=== PATIENT | female | born 1970 | race Caucasian/White ===

== ENCOUNTER 2024-12-03 12:32 | Outpatient (AMB) | payer BC, SELFPAY ==
--- NOTE | 2024-12-03 12:37 | A.OFFVIS_ITS ---
Vital Signs 12/03/24 12:40 Height 5 ft 2 in Weight 180 lb BMI 32.9 Handedness Left Intake Visit Reasons: Left knee pain Intake Note: Concepción is a 54 year old female who presents with complaints of left knee pain. The patient states that most of the pain is along the anterior and lateral aspect of her knee. She did have a cortisone injection given into her left knee several years ago which gave her fairly good relief. She has tried Tylenol and Aleve which gave her mild relief. She denies any locking or giving way. Allergies shellfish derived (shellfish) Allergy (Severe, Verified 12/03/24 12:42) Anaphylaxis Medication List - Last Reconciled 12/03/24 by Zohaib Boyer MD lisinopril 10 mg PO BID norethin-e.estradiol triphasic 0.5/0.75/1 mg- 35 mcg (Nylia (28)) 1 tab PO DAILY Physical Exam Vital Signs: BMI result Body Mass Index 32.9 Const Other: Well-nourished well-developed very friendly female awake alert and oriented x3 in no acute distress Extrem Other: Bilateral lower extremity examination shows good capillary refill, no skin lesions noted, normal sensation light touch Left knee examination shows a minimal effusion, mild crepitus with range of motion, tenderness along her medial and lateral joint lines, positive Zelda's test, no instability Office Procedures AMB Joint Injection/Aspiration Joint Injection/Aspiration Primary Site: left knee Prep: site was prepped using aseptic technique Injected: 40 mg of, DepoMedrol and 1% plain lidocaine Procedure: The patient tolerated the procedure well Coding 99834 - Large joint Procedure code (CPT) selection complete Results Reviewed Results Reviewed: X-rays of the patient's left knee taken previously show mild joint space narrowing, no acute bony abnormalities Assessment & Plan Assessment & Plan (1) Left knee pain: Code(s): M25.562 - Pain in left knee Category: Medical Plan Ms. Linares presents with left knee pain due to early degenerative joint disease as well as possible meniscus tearing. I had a lengthy discussion with the patient regarding the treatment options. She wishes to hold off on surgery if at all possible. I agree with this plan. The risks and benefits of a left knee cortisone injection were discussed at length with the patient. The patient wished to proceed. She tolerated the injection well. She will continue with her activity modifications. She will contact me prior to her follow-up appointment in 3 months should any questions or concerns arise. Feel free to call me at any time should questions regarding her orthopedic management arise. I spent 21 minutes in reviewing the patient's records and imaging studies, seeing the patient and documenting in the medical record. Orders: Orders 2 XR knee LT 3V Today M25.562 - Pain in left knee AMB Joint Injection/Aspiration Today M25.562 - Pain in left knee Coding Level of Care Code New Pt Level 3 (50125) Complex EM visit Add On G2211 Diagnoses Left knee pain M25.562 CPT Codes Coding - 83666 Large joint: 68885 - Large joint ([id number])
[2024-12-03 12:40] VITALS: BMI 32.9
== END 2024-12-03 12:58 | disposition home or self-care (01) ==
LOC: HO.HOS 12:33
PROVIDERS: PCP Family Medicine; Visit Provider Orthopaedic Surgery
DX: M25.562 Pain in left knee (principal)
CPT/HCPCS: 20610; 99203

== ENCOUNTER 2024-12-03 12:41 | Outpatient (REF) | payer BC, SELFPAY | END 2024-12-03 12:42 | disposition home or self-care (01) | LOC: HO.HOSX 12:41 | PROVIDERS: Visit Provider Orthopaedic Surgery | DX: M25.562 Pain in left knee (principal) | CPT/HCPCS: 20610; J1010; J2003 ==